=== PATIENT | male | born 1990 | race African-American/Black ===

== ENCOUNTER 2023-07-03 14:09 | Emergency (ER) | payer MEDICAID ==
[~2023-07-03] VITALS: Ht 182.9 cm; Wt 86.2 kg
[2023-07-03] MEDS ORDERED: KETOROLAC TROMETHAMINE INJ 60 MG/2 ML VIAL IM ONE (14:30)
[2023-07-03] MEDS ORDERED: CYCLOBENZAPRINE 10 MG TABLET PO ONE (14:30)
[2023-07-03] MEDS ORDERED: KETOROLAC TROMETHAMINE INJ 30 MG/ML VIAL ONE (15:14)
[2023-07-03] MEDS ORDERED: CYCLOBENZAPRINE 10 MG TABLET ONE (15:15)
[2023-07-03 18:39] VITALS: BP 160/51; TEMP 98.7; O2SAT 99
== END 2023-07-03 18:39 | disposition home or self-care (01) ==
LOC: ER 14:28
DX: S40.011A Contusion of right shoulder, initial encounter (principal); S09.90XA Unspecified injury of head, initial encounter; Z60.2 Problems related to living alone; W18.30XA Fall on same level, unspecified, initial encounter; Y93.89 Activity, other specified; Y92.89 Other specified places as the place of occurrence of the external cause; Y99.8 Other external cause status
CPT/HCPCS: 99285; 70450; 96372; 73030; J1885